=== PATIENT | male | born 1990 | race Caucasian/White ===

== ENCOUNTER → 2017-04-25 | Outpatient (CLI) | payer BC ==
--- NOTE | 2017-04-25 13:35 | REP ---
Left hand four views : There is no fracture or dislocation. Mineralization and joint spaces are normal. There are no calcifications or foreign bodies. Impression: Negative left hand . Signed by Abhay Leon MD 04/25/2017 01:27 P
--- NOTE | 2017-04-25 13:36 | REP ---
Left wrist four views : There is no fracture or dislocation. Mineralization and joint spaces are normal. There are no calcifications or foreign bodies. Impression: Negative left wrist . Signed by Abhay Leon MD 04/25/2017 01:27 P
== END ==
LOC: M WUC 12:39
PROVIDERS: ATTEND Physician Assistant
DX: S60.222A Contusion of left hand, initial encounter (principal); S60.212A Contusion of left wrist, initial encounter; X58.XXXA Exposure to other specified factors, initial encounter; Y92.89 Other specified places as the place of occurrence of the external cause; Y99.9 Unspecified external cause status

== ENCOUNTER 2017-12-25 13:15 | Emergency (ER) | payer OTHER, BC ==
[2017-12-25 14:07] LABS: BASO # 0.1 10^3/uL (0.0-0.2); BASO % 0.7 % (0.0-1.0); EOS # 0.2 10^3/uL (0.0-0.50); EOS % 2.2 % (0.0-3.0); HEMATOCRIT 45.9 % (42.0-52.0); IMMATURE GRANULOCYTE % 0.3 % (0-3.0); LYMPH # 1.9 10^3/uL (1.5-6.5); LYMPH % 21.2 % (24.0-44.0); MEAN CORPUSCULAR HEMOGLOBIN 29.2 pg (27.0-33.0); MEAN CORPUSCULAR HGB CONC 32.7 g/dl (32.0-36.5); MEAN CORPUSCULAR VOLUME 89.3 fl (80.0-96.0); MONO # 0.7 10^3/uL (0.0-0.8); MONO % 8.2 % (0.0-5.0); NEUTROPHILS # 5.9 10^3/uL (1.8-7.7); NEUTROPHILS % 67.4 % (36.0-66.0); PLATELET COUNT, AUTOMATED 178 10^3/uL (150-450); RED BLOOD COUNT 5.14 10^6/uL (4.30-6.10); WHITE BLOOD COUNT 8.8 10^3/uL (4.0-10.0)
[2017-12-25 14:43] LABS: ALBUMIN 4.2 GM/DL (3.2-5.2); ALBUMIN/GLOBULIN RATIO 1.35 (1.00-1.93); ALKALINE PHOSPHATASE 72 U/L (45-117); ALT/SGPT 33 U/L (12-78); ANION GAP 8 MEQ/L (8-16); AST/SGOT 23 U/L (7-37); BILIRUBIN,DIRECT 0.3 MG/DL (0.0-0.2); BILIRUBIN,TOTAL 1.1 MG/DL (0.2-1.0); BLOOD UREA NITROGEN 11 MG/DL (7-18); CARBON DIOXIDE LEVEL 28 MEQ/L (21-32); CHLORIDE LEVEL 106 MEQ/L (98-107); CREATININE FOR GFR 0.97 MG/DL (0.70-1.30); GLOMERULAR FILTRATION RATE > 60.0 (>60); GLUCOSE, FASTING 65 MG/DL (70-100); NT-PRO BNP 1984 PG/ML (<125); POTASSIUM SERUM 4.4 MEQ/L (3.5-5.1); SODIUM LEVEL 142 MEQ/L (136-145); TOTAL PROTEIN 7.3 GM/DL (6.4-8.2)
[2017-12-25 15:30] LABS: BEDSIDE GLUCOSE 73 MG/DL (70-105)
[2017-12-25 15:33] LABS: APPEARANCE, URINE CLEAR (CLEAR); BACTERIA, URINE AUTO NEGATIVE (NEGATIVE); BILIRUBIN, URINE AUTO NEGATIVE (NEGATIVE); BLOOD, URINE BLOOD NEGATIVE (NEGATIVE); COLOR, URINE YELLOW (YELLOW); GLUCOSE, URINE (UA) AUTO NEGATIVE (NEGATIVE); KETONE, URINE AUTO NEGATIVE (NEGATIVE); LEUKOCYTE ESTERASE, URINE AUTO NEGATIVE (NEGATIVE); NITRITE, URINE AUTO NEGATIVE (NEGATIVE); PROTEIN, URINE AUTO NEGATIVE (NEGATIVE); RBC, URINE AUTO 0 /HPF (0-3); SPECIFIC GRAVITY URINE AUTO 1.006 (1.002-1.035); SQUAMOUS EPITHELIAL CELL UR AU 0 /HPF (0-6); UROBILINOGEN, URINE AUTO 0.2 mg/dL (0.0-2.0); WBC, URINE AUTO 0 /HPF (0-3)
[2017-12-25 15:52] LABS: ESTIMATED AVERAGE GLUCOSE 146 MG/DL (60-110); HEMOGLOBIN A1c 6.7 %
== END 2017-12-25 16:50 | disposition home or self-care (01) ==
LOC: M ED 13:15
DX: I83.11 Varicose veins of right lower extremity with inflammation (principal); I83.12 Varicose veins of left lower extremity with inflammation; L03.115 Cellulitis of right lower limb; I51.7 Cardiomegaly; R73.03 Prediabetes; J45.909 Unspecified asthma, uncomplicated; Z83.3 Family history of diabetes mellitus; Z82.49 Family history of ischemic heart disease and other diseases of the circulatory system
CPT/HCPCS: 71045

== ENCOUNTER → 2018-01-17 | Outpatient (REF) | payer OTHER ==
[2018-01-17 17:06] LABS: ALBUMIN 4.4 GM/DL (3.2-5.2); ANION GAP 10 MEQ/L (8-16); BLOOD UREA NITROGEN 17 MG/DL (7-18); CALCIUM LEVEL 9.1 MG/DL (8.5-10.1); CARBON DIOXIDE LEVEL 23 MEQ/L (21-32); CHLORIDE LEVEL 107 MEQ/L (98-107); CREATININE FOR GFR 0.91 MG/DL (0.70-1.30); GLOMERULAR FILTRATION RATE > 60.0 (>60); GLUCOSE, FASTING 103 MG/DL (70-100); NT-PRO BNP 1539 PG/ML (<125); PHOSPHORUS LEVEL 4.1 MG/DL (2.5-4.9); POTASSIUM SERUM 4.3 MEQ/L (3.5-5.1); SODIUM LEVEL 140 MEQ/L (136-145); URIC ACID 9.2 MG/DL (3.5-7.2)
== END ==
LOC: M LABDRWCV 16:14
DX: I50.810 Right heart failure, unspecified (principal); M10.00 Idiopathic gout, unspecified site

== ENCOUNTER → 2018-01-18 | Outpatient (CLI) | payer OTHER | LOC: M RAD 12:48 | DX: I87.311 Chronic venous hypertension (idiopathic) with ulcer of right lower extremity (principal) | CPT/HCPCS: 93971 ==

== ENCOUNTER → 2018-04-03 | Outpatient (REF) | payer OTHER ==
[2018-04-03 17:20] LABS: ESTIMATED AVERAGE GLUCOSE 137 MG/DL (60-110); HEMOGLOBIN A1c 6.4 %
[2018-04-03 17:21] LABS: THYROID PEROXIDASE ANTIBODY 29.3 U/ML (<60.0)
[2018-04-03 17:27] LABS: MALB URINE SIEMENS 76.2 MG/L; MAU/CREAT RATIO 45.6 MCG/MG (0.0-30.0)
[2018-04-03 17:28] LABS: ALBUMIN 4.2 GM/DL (3.2-5.2); ALKALINE PHOSPHATASE 85 U/L (45-117); ALT/SGPT 38 U/L (12-78); ANION GAP 8 MEQ/L (8-16); AST/SGOT 19 U/L (7-37); BILIRUBIN,TOTAL 0.8 MG/DL (0.2-1.0); BLOOD UREA NITROGEN 17 MG/DL (7-18); CARBON DIOXIDE LEVEL 28 MEQ/L (21-32); CHLORIDE LEVEL 107 MEQ/L (98-107); CREATININE FOR GFR 0.96 MG/DL (0.70-1.30); FREE T4 1.08 NG/DL (0.76-1.46); GLOMERULAR FILTRATION RATE > 60.0 (>60); GLUCOSE, FASTING 100 MG/DL (70-100); POTASSIUM SERUM 4.5 MEQ/L (3.5-5.1); SODIUM LEVEL 143 MEQ/L (136-145); TOTAL PROTEIN 7.2 GM/DL (6.4-8.2); URIC ACID 7.6 MG/DL (3.5-7.2)
== END ==
LOC: M SFHCCAPE 08:07
DX: E03.9 Hypothyroidism, unspecified (principal); M10.9 Gout, unspecified

== ENCOUNTER → 2018-05-13 | Outpatient (CLI) | payer OTHER | LOC: M SLEEP 19:47 | DX: G47.33 Obstructive sleep apnea (adult) (pediatric) (principal) | CPT/HCPCS: 95811 ==

== ENCOUNTER 2019-03-20 12:01 | Emergency (ER) | payer OTHER ==
[~2019-03-20] VITALS: Ht 185.4 cm; Wt 134.0 kg
[~2019-03-20 12:01] MED LIST: HYDR25TAB PO; KEFL500C17 PO
[2019-03-20] MEDS ORDERED: AMIL5TAB4 (12:10)
[2019-03-20] MEDS ORDERED: ALLO100T (12:10)
[2019-03-20] MEDS ORDERED: TORS10TA3 (12:10)
[2019-03-20 12:39] LABS: BASO % 0.6 % (0.0-1.0); EOS # 0.1 10^3/uL (0.0-0.50); EOS % 1.9 % (0.0-3.0); HEMATOCRIT 46.3 % (42.0-52.0); LYMPH # 1.4 10^3/uL (1.5-4.5); LYMPH % 19.4 % (24.0-44.0); MEAN CORPUSCULAR HEMOGLOBIN 29.8 pg (27.0-33.0); MEAN CORPUSCULAR HGB CONC 32.4 g/dl (32.0-36.5); MONO # 0.5 10^3/uL (0.0-0.8); MONO % 7.4 % (0.0-5.0); NEUTROPHILS # 5.1 10^3/uL (1.8-7.7); NEUTROPHILS % 70.3 % (36.0-66.0); PLATELET COUNT, AUTOMATED 140 10^3/uL (150-450); RED BLOOD COUNT 5.03 10^6/uL (4.30-6.10); WHITE BLOOD COUNT 7.3 10^3/uL (4.0-10.0)
[2019-03-20 12:50] LABS: INR 1.17; PROTHROMBIN TIME 15.1 SECONDS (12.1-14.4)
[2019-03-20 12:51] LABS: PARTIAL THROMBOPLASTIN TIME 31.9 SECONDS (25.4-37.6)
[2019-03-20] MEDS ORDERED: LIDOCAINE 2% W/EPIN INJ 20ML **PRES FREE As Ordered ONE (13:26)
[2019-03-20] MEDS ORDERED: LIDOCAINE 2% W/EPIN INJ 20ML **PRES FREE INJ ONE (13:30)
[2019-03-20 13:58] VITALS: BP 119/62
== END 2019-03-20 13:54 | disposition home or self-care (01) ==
LOC: M ED 12:01
DX: I83.91 Asymptomatic varicose veins of right lower extremity (principal); J45.909 Unspecified asthma, uncomplicated; F17.210 Nicotine dependence, cigarettes, uncomplicated

== ENCOUNTER → 2019-04-08 | Outpatient (CLI) | payer OTHER ==
[~2019-04-08] MED LIST changes: +ALLO100T; +ALLO100T PO; +AMIL5TAB4; +AUGM875T28 PO; +COLC1TAB13 PO; +FURO40TA2 PO; +IBUP-1114 PO; +LEVO25TA5 PO; +ONDA4TAB6 PO; +POTA1TAB14 PO; +TORS10TA3
--- NOTE | 2019-04-08 15:02 | REP ---
Clinical: History of peripheral vascular disease with lower extremity pain . Technique: Salvador scale and color Doppler evaluation using linear high frequency transducer with reflux evaluation. Findings: Ultrasound examination of the right and left lower extremity deep venous structures from the common femoral vein to the popliteal vein demonstrates normal compressibility flow and wave patterns in response to respiration and augmentation. There is no evidence for deep venous thrombosis. Right lower extremity demonstrates reflux in the anterior accessory greater saphenous vein measuring 3 mm diameter with duration of 3 seconds on standing. Left lower extremity demonstrates reflux at the greater saphenous vein measuring 4 mm diameter with reflux duration 5.3 seconds. Two right groin nodes measure 3.3 x 1.2 x 2.7 cm and 3.9 x 1.0 x 3.4 cm. Impression: No evidence for deep venous thrombosis. Very minimal reflux noted in the right anterior accessory saphenous vein and left distal greater saphenous vein. Electronically Signed by Tom Thurman MD 04/08/2019 02:53 P
== END ==
LOC: M RAD 13:05
PROVIDERS: ATTEND Physician Assistant
DX: I87.2 Venous insufficiency (chronic) (peripheral) (principal)

== ENCOUNTER 2019-04-29 15:04 | Emergency (ER) | payer OTHER ==
[~2019-04-29] VITALS: Ht 185.4 cm; Wt 133.2 kg
[~2019-04-29 15:04] MED LIST changes: -ALLO100T PO; -AUGM875T28 PO; -COLC1TAB13 PO; -FURO40TA2 PO; -IBUP-1114 PO; -LEVO25TA5 PO; -ONDA4TAB6 PO; -POTA1TAB14 PO
[2019-04-29 17:17] LABS: BASO # 0.1 10^3/uL (0.0-0.2); BASO % 0.6 % (0.0-1.0); EOS # 0.2 10^3/uL (0.0-0.50); EOS % 1.9 % (0.0-3.0); HEMATOCRIT 44.2 % (42.0-52.0); HEMOGLOBIN 14.5 g/dl (13.5-17.5); LYMPH # 1.8 10^3/uL (1.5-4.5); LYMPH % 20.4 % (24.0-44.0); MEAN CORPUSCULAR HEMOGLOBIN 29.5 pg (27.0-33.0); MEAN CORPUSCULAR HGB CONC 32.8 g/dl (32.0-36.5); MEAN CORPUSCULAR VOLUME 89.8 fl (80.0-96.0); MONO # 0.6 10^3/uL (0.0-0.8); NEUTROPHILS % 69.8 % (36.0-66.0); PLATELET COUNT, AUTOMATED 166 10^3/uL (150-450); RED BLOOD COUNT 4.92 10^6/uL (4.30-6.10); WHITE BLOOD COUNT 8.6 10^3/uL (4.0-10.0)
--- NOTE | 2019-04-29 17:23 | REPVR ---
EXAM: US Abdomen Limited, Right Upper Quadrant EXAM DATE/TIME: 04/29/2019 5:13 PM CLINICAL HISTORY: 29 years old, male; Abdominal pain and other: Subscapular; Additional info: Right scapular pain, nausea, vomiting ? gb path TECHNIQUE: Imaging protocol: Real-time ultrasound of the abdomen with image documentation. Examination was focused on the right upper quadrant. COMPARISON: No relevant prior studies available. FINDINGS: Liver: Normal. No masses. Gallbladder: Mild gallbladder wall thickening. Minimal pericholecystic fluid. No calculi demonstrated. Common bile duct: The common bile duct measures 4.5 mm. No mass or choledocholithiasis. Pancreas: Obscured by bowel gas. Right kidney: Right kidney measures 14.1 x 6.7 x 4.1 cm. Other findings: Examination limited by patient body habitus and poor acoustic characteristics. IMPRESSION: 1. Mild gallbladder wall thickening. Minimal pericholecystic fluid. No calculi demonstrated. Clinical correlation to exclude acalculus cholecystitis suggested. 2. Limited evaluation. No other significant findings demonstrated. Electronically signed by: Brayden Tinoco On 04/29/2019 17:22:36 PM
[2019-04-29 17:28] LABS: ALBUMIN 4.1 GM/DL (3.2-5.2); ALT/SGPT 26 U/L (12-78); AMYLASE 39 U/L (25-115); BILIRUBIN,TOTAL 2.4 MG/DL (0.2-1.0); BLOOD UREA NITROGEN 12 MG/DL (7-18); CALCIUM LEVEL 9.3 MG/DL (8.5-10.1); CARBON DIOXIDE LEVEL 27 MEQ/L (21-32); CHLORIDE LEVEL 106 MEQ/L (98-107); CREATININE FOR GFR 0.98 MG/DL (0.70-1.30); GLOMERULAR FILTRATION RATE > 60.0 (>60); GLUCOSE, FASTING 95 MG/DL (70-100); LIPASE 117 U/L (73-393); POTASSIUM SERUM 3.9 MEQ/L (3.5-5.1); SODIUM LEVEL 139 MEQ/L (136-145); TOTAL PROTEIN 7.3 GM/DL (6.4-8.2)
[2019-04-29] MEDS ORDERED: AUGM875T28 PO (18:09)
[2019-04-29] MEDS ORDERED: ONDA4TAB6 PO (18:09)
[2019-04-29 18:22] VITALS: BP 113/73
--- NOTE | 2019-04-30 00:29 | ECGEPIP ---
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 Order Number: [id number] Reading MD: Joaquim Lopez Measurements Intervals [place] Rate: 82 P: 66 NC: 201 QRS: 42 QRSD: 98 T: 89 QT: 400 QTc: 470 Interpretive Statements SINUS RHYTHM WITH MARKED SINUS ARRHYTHMIA Low QRS complex voltage in the limb leads Nonspecific ST-T wave abnormalities Prolonged QTc interval More baseline variabilit when compareed to tracing done 12-25-17 Electronically Signed on 04-30-2019 0:29:12 EDT by Joaquim Lopez
[2019-05-20] MEDS ORDERED: COLC1TAB13 PO (10:49)
[2019-05-20] MEDS ORDERED: POTA1TAB14 PO (10:49)
[2019-05-20] MEDS ORDERED: LEVO25TA5 PO (10:49)
[2019-05-20] MEDS ORDERED: FURO40TA2 PO (10:49)
[2019-05-20] MEDS ORDERED: ALLO100T PO (10:49)
[2019-05-20] MEDS ORDERED: IBUP-1114 PO (10:50)
== END 2019-04-29 18:24 | disposition home or self-care (01) ==
LOC: M ED 15:04
DX: K80.10 Calculus of gallbladder with chronic cholecystitis without obstruction (principal); E80.6 Other disorders of bilirubin metabolism; R60.0 Localized edema; M62.838 Other muscle spasm; F17.200 Nicotine dependence, unspecified, uncomplicated; Z87.19 Personal history of other diseases of the digestive system

== ENCOUNTER 2019-05-13 18:12 | Emergency (ER) | payer OTHER ==
[~2019-05-13] VITALS: Ht 185.4 cm; Wt 139.1 kg
[~2019-05-13 18:12] MED LIST changes: -ALLO100T PO; -COLC1TAB13 PO; -FURO40TA2 PO; -IBUP-1114 PO; -LEVO25TA5 PO; -POTA1TAB14 PO
[2019-05-13] MEDS ORDERED: ISOVUE-370 76% 100ML VIAL (Q9967) As Ordered ONE (19:22)
[2019-05-13 19:26] LABS: INR 1.3; PROTHROMBIN TIME 15.9 SECONDS (11.8-14.0)
[2019-05-13 19:27] LABS: PARTIAL THROMBOPLASTIN TIME 32.9 SECONDS (25.0-38.4)
[2019-05-13 19:32] LABS: CK-MB VALUE MASS 1.9 NG/ML (<3.6); CPK CREATINE PHOSPHOKINASE 195 U/L (39-308); MB/CK RELATIVE INDEX 0.97 (< OR =4); TROPONIN I < 0.02 NG/ML (< 0.10)
[2019-05-13] MEDS ORDERED: KETOROLAC 30 MG/ML VIAL (J1885) IV ONE (19:45)
--- NOTE | 2019-05-13 20:10 | ECGEPIP ---
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
--- NOTE | 2019-05-13 20:11 | REPVR ---
EXAM: CT Angiography Chest With Contrast EXAM DATE/TIME: 05/13/2019 7:35 PM CLINICAL HISTORY: 29 years old, male; Chest pain; Additional info: Cp TECHNIQUE: Imaging protocol: Axial computed tomographic angiography images of the chest with intravenous contrast using CT angiography protocol. Coronal and sagittal reformatted images were created and reviewed. 3D rendering: MIP reconstructed images were created and reviewed. Radiation optimization: All CT scans at this facility use at least one of these dose optimization techniques: automated exposure control; mA and/or kV adjustment per patient size (includes targeted exams where dose is matched to clinical indication); or iterative reconstruction. Contrast material: ISO 370;Contrast volume: 75 ml;Contrast route: IV; COMPARISON: CR Chest, 2 view PA, Lat 05/13/2019 8:32 AM FINDINGS: Pulmonary arteries: No focal pulmonary artery filling defect to suggest acute pulmonary embolus. Aorta: No thoracic aortic aneurysm or dissection. Lungs: No suspicious lung mass or air space process. No central endobronchial lesion. Pleural space: Miniscule dependent transudate density bilateral pleural effusions. No pneumothorax. Heart: Multichamber cardiac enlargement. Pericardial effusion is present circumferentially, measuring up to 3.5 cm in thickness. Dilatation of the right atrium, IVC and hepatic veins is present. Interstitial pattern does not suggest pulmonary edema. Intraperitoneal space: Cirrhotic changes are present in the liver with nodular contours and adjacent ascites. Lymph nodes: No enlarged mediastinal lymph nodes. Soft tissues: Changes of gynecomastia are present. Incidental left axillary lipoma IMPRESSION: 1. No evidence of acute pulmonary embolus. 2. Multichamber cardiac enlargement with large pericardial effusion and probable mild compromise of cardiac compliance with dilated IVC and hepatic veins. No interstitial changes of tamponade 3. Cirrhosis and ascites. Electronically signed by: Quinton Bah On 05/13/2019 20:10:51 PM
[2019-05-13 20:46] VITALS: BP 101/76
--- NOTE | 2019-05-14 12:49 | ED PDOC ---
Post-Departure Follow-Up dr tijerina faxed formal report of cta chest for fu Vince Garcia MD May 14, 2019 12:49
[2019-05-14] MEDS ORDERED: COLC1TAB13 PO (19:44)
[2019-05-20] MEDS ORDERED: LEVO25TA5 PO (10:49)
[2019-05-20] MEDS ORDERED: COLC1TAB13 PO (10:49)
[2019-05-20] MEDS ORDERED: ALLO100T PO (10:49)
[2019-05-20] MEDS ORDERED: FURO40TA2 PO (10:49)
[2019-05-20] MEDS ORDERED: POTA1TAB14 PO (10:49)
[2019-05-20] MEDS ORDERED: IBUP-1114 PO (10:50)
== END 2019-05-13 21:00 | disposition home or self-care (01) ==
LOC: M ED 18:12
DX: I31.3 Pericardial effusion (noninflammatory) (principal); I48.91 Unspecified atrial fibrillation; I11.0 Hypertensive heart disease with heart failure; I50.9 Heart failure, unspecified; M10.9 Gout, unspecified; E66.9 Obesity, unspecified; Z79.899 Other long term (current) drug therapy; Z79.890 Hormone replacement therapy; F17.210 Nicotine dependence, cigarettes, uncomplicated
CPT/HCPCS: 36415; 71275; 82550; 82553; 84484; 85610; 85730; 93005; 96374; 99284; J1885; Q9967

== ENCOUNTER → 2019-05-13 | Outpatient (CLI) | payer OTHER ==
[~2019-05-13] MED LIST changes: +ALLO100T PO; +AUGM875T28 PO; +COLC1TAB13 PO; +FURO40TA2 PO; +IBUP-1114 PO; +LEVO25TA5 PO; +ONDA4TAB6 PO; +POTA1TAB14 PO
--- NOTE | 2019-05-13 08:44 | REP ---
Clinical: Acute cholecystitis. Clinical: Preoperative assessment . Comparison: 12/25/2017 . Technique: PA and lateral. Findings: The mediastinum and cardiac silhouette are stable. Cardiomegaly again noted. The lung hatch are clear and without acute consolidation, effusion, or pneumothorax. The skeletal structures are intact and normal. Impression: 1. Cardiomegaly. Electronically Signed by Tom Thurman MD 05/13/2019 08:35 A
[2019-05-13 08:50] LABS: BASO # 0.1 10^3/uL (0.0-0.2); BASO % 0.7 % (0.0-1.0); EOS # 0.1 10^3/uL (0.0-0.50); HEMATOCRIT 45.8 % (42.0-52.0); HEMOGLOBIN 14.7 g/dl (13.5-17.5); LYMPH # 1.4 10^3/uL (1.5-4.5); LYMPH % 19.8 % (24.0-44.0); MEAN CORPUSCULAR HEMOGLOBIN 29.1 pg (27.0-33.0); MEAN CORPUSCULAR HGB CONC 32.1 g/dl (32.0-36.5); MEAN CORPUSCULAR VOLUME 90.5 fl (80.0-96.0); MONO # 0.5 10^3/uL (0.0-0.8); MONO % 7.6 % (0.0-5.0); NEUTROPHILS # 4.9 10^3/uL (1.8-7.7); NEUTROPHILS % 69.6 % (36.0-66.0); PLATELET COUNT, AUTOMATED 168 10^3/uL (150-450); RED BLOOD COUNT 5.06 10^6/uL (4.30-6.10); WHITE BLOOD COUNT 7.1 10^3/uL (4.0-10.0)
[2019-05-13 09:26] LABS: ALBUMIN 3.9 GM/DL (3.2-5.2); ALT/SGPT 28 U/L (12-78); BILIRUBIN,TOTAL 2.2 MG/DL (0.2-1.0); BLOOD UREA NITROGEN 16 MG/DL (7-18); CALCIUM LEVEL 9.1 MG/DL (8.5-10.1); CARBON DIOXIDE LEVEL 29 MEQ/L (21-32); CHLORIDE LEVEL 105 MEQ/L (98-107); CREATININE FOR GFR 0.82 MG/DL (0.70-1.30); GLOMERULAR FILTRATION RATE > 60.0 (>60); GLUCOSE, FASTING 88 MG/DL (70-100); NT-PRO BNP 2269 PG/ML (<125); POTASSIUM SERUM 4.3 MEQ/L (3.5-5.1); SODIUM LEVEL 139 MEQ/L (136-145); TOTAL PROTEIN 6.9 GM/DL (6.4-8.2)
[2019-05-14 12:13] LABS: C REACTIVE PROTEIN QUANTITATIV < 0.30 MG/DL (0.00-0.30); FREE T4 1.24 NG/DL (0.76-1.46); RHEUMATOID FACTOR QUANT < 10.0 IU/ML (<15.0); URIC ACID 7.3 MG/DL (3.5-7.2)
[2019-05-17 00:06] LABS: ANA (HEP2) Negative (.); Lyme Disease IgG/IgM Antibodie <0.91 ISR (0.00-0.90); Lyme Disease IgM Ab Quantitati <0.80 index (0.00-0.79)
[2019-05-17 12:37] LABS: HEMOGLOBIN A1c 6.1 %
== END ==
LOC: M LAB 08:12
PROVIDERS: ATTEND Physician Assistant
DX: E80.6 Other disorders of bilirubin metabolism (principal); R60.0 Localized edema; R07.81 Pleurodynia; K81.0 Acute cholecystitis; I31.3 Pericardial effusion (noninflammatory)

== ENCOUNTER 2019-05-14 13:59 | Emergency (ER) | payer OTHER ==
[~2019-05-14] VITALS: Ht 185.4 cm; Wt 141.1 kg
[2019-05-14 15:23] LABS: BASO # 0.1 10^3/uL (0.0-0.2); BASO % 0.6 % (0.0-1.0); EOS # 0.1 10^3/uL (0.0-0.50); EOS % 1.8 % (0.0-3.0); HEMATOCRIT 44.9 % (42.0-52.0); HEMOGLOBIN 14.8 g/dl (13.5-17.5); LYMPH # 1.5 10^3/uL (1.5-4.5); LYMPH % 18.8 % (24.0-44.0); MEAN CORPUSCULAR VOLUME 90.9 fl (80.0-96.0); MONO # 0.5 10^3/uL (0.0-0.8); MONO % 6.4 % (0.0-5.0); NEUTROPHILS # 5.6 10^3/uL (1.8-7.7); NEUTROPHILS % 72.3 % (36.0-66.0); PLATELET COUNT, AUTOMATED 153 10^3/uL (150-450); RED BLOOD COUNT 4.94 10^6/uL (4.30-6.10); WHITE BLOOD COUNT 7.7 10^3/uL (4.0-10.0)
[2019-05-14 15:33] LABS: INR 1.3; PROTHROMBIN TIME 15.9 SECONDS (11.8-14.0)
--- NOTE | 2019-05-14 15:48 | REP ---
CHEST, SINGLE VIEW: Single view of the chest is performed. There is no acute infiltrate or pulmonary edema. Cardiac silhouette is prominent. On yesterday's CT of the chest there was a moderate amount of pericardial fluid. This study is otherwise unremarkable. Electronically Signed by Abhay Salvador MD 05/15/2019 07:51 A
[2019-05-14 15:50] LABS: ALT/SGPT 26 U/L (12-78); BLOOD UREA NITROGEN 17 MG/DL (7-18); CALCIUM LEVEL 9.1 MG/DL (8.5-10.1); CARBON DIOXIDE LEVEL 24 MEQ/L (21-32); CHLORIDE LEVEL 109 MEQ/L (98-107); CK-MB VALUE MASS 2.1 NG/ML (<3.6); CPK CREATINE PHOSPHOKINASE 136 U/L (39-308); CREATININE FOR GFR 0.87 MG/DL (0.70-1.30); GLOMERULAR FILTRATION RATE > 60.0 (>60); GLUCOSE, FASTING 106 MG/DL (70-100); MB/CK RELATIVE INDEX 1.54 (< OR =4); POTASSIUM SERUM 3.8 MEQ/L (3.5-5.1); SODIUM LEVEL 140 MEQ/L (136-145)
[2019-05-14 15:51] LABS: ALBUMIN 3.9 GM/DL (3.2-5.2); BILIRUBIN,DIRECT 0.9 MG/DL (0.0-0.2); BILIRUBIN,TOTAL 2.1 MG/DL (0.2-1.0); NT-PRO BNP 2863 PG/ML (<125); TOTAL PROTEIN 6.7 GM/DL (6.4-8.2); TROPONIN I < 0.02 NG/ML (< 0.10)
[2019-05-14] MEDS ORDERED: COLC1TAB13 PO (19:44)
[2019-05-14] MEDS ORDERED: COLCHICINE 0.6 MG TAB PO ONE (19:45)
[2019-05-14 20:07] VITALS: BP 115/75
--- NOTE | 2019-05-14 21:47 | ECGEPIP ---
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
--- NOTE | 2019-05-15 08:19 | ECHO ---
DATE OF STUDY: 05/14/2019 DATE OF : 1990 HEIGHT: 186 cm WEIGHT: 141 kg REFERRING PROVIDER: MAGGIE Guadalupe INDICATION: Dyspnea. 2-D MEASUREMENTS: Aortic annulus: 2.1 cm Aortic root: 3.1 cm Ventricular septum: 1.19 cm Posterior wall: 1.22 cm Left ventricle diastole: 3.6 cm Proximal ascending aorta: 3.2 cm Left atrium: 5.5 cm DOPPLER MEASUREMENTS: Aortic valve velocity: 81.9 cm/sec LVOT velocity: 61.8 cm/sec LVOT VTI: 12.3 cm Mitral E velocity: 101 cm/sec Mitral deceleration time: 92 ms Very mild tricuspid regurgitation Estimated right ventricular systolic pressure 33 mmHg DESCRIPTION: The rhythm was atrial fibrillation with controlled ventricular response. Image quality was fairly good. This was a 2-D, M-mode, color flow Doppler and pulse wave Doppler examination. CONCLUSIONS: 1. Large pericardial effusion which measured 2.6 cm of the posterior wall, 1.5 cm over the anterior wall over the right ventricle, 3.3 cm over the lateral wall of the left ventricle and 1.6 cm over the right atrial free wall. No diastolic chamber collapse. There appeared to be a round relatively low density mass in the vicinity of the junction of the aortic root adjacent to the uppermost portion of the conus portion of the right ventricle. There may be additional mass-like structures versus epicardial fat adjacent to that over the conus portion of the right ventricle. Differential diagnosis would include loculated pericardial effusion, epicardial fat, lymphoma, and other tumors. There appeared to be close to 25% respiratory variation of the mitral inflow pattern with breathing. 2. Normal left ventricle size and left ventricle wall thickness near the upper limits of normal. Normal left ventricle regional wall motion and wall thickening. Normal LV systolic function. LVEF 65% by visual estimate. Unable to determine LV diastolic function in the setting of atrial fibrillation. 3. Severe left atrial dilatation. 4. Mild aortic valve sclerosis with a 3-cuspid aortic valve. 5. Right pleural effusion. 6. Presence of ascites around the liver. 7. Inferior vena cava plethora suggestive of elevated central venous pressure at least 20 mmHg. The case was discussed by telephone this evening by Dr. Mercado with Dr. Roman Yen and the plan is to have the patient admitted to the hospital with Dr. Yen to be on consult to see the patient tomorrow and the plan to keep the patient nothing by mouth overnight.
[2019-05-20] MEDS ORDERED: FURO40TA2 PO (10:49)
[2019-05-20] MEDS ORDERED: COLC1TAB13 PO (10:49)
[2019-05-20] MEDS ORDERED: POTA1TAB14 PO (10:49)
[2019-05-20] MEDS ORDERED: ALLO100T PO (10:49)
[2019-05-20] MEDS ORDERED: LEVO25TA5 PO (10:49)
[2019-05-20] MEDS ORDERED: IBUP-1114 PO (10:50)
== END 2019-05-14 20:08 | disposition home or self-care (01) ==
LOC: M ED 13:59
DX: I48.91 Unspecified atrial fibrillation (principal); I31.3 Pericardial effusion (noninflammatory); R07.89 Other chest pain; M25.519 Pain in unspecified shoulder; I10 Essential (primary) hypertension; F17.200 Nicotine dependence, unspecified, uncomplicated

== ENCOUNTER 2019-05-14 23:04 | Emergency (ER) | payer OTHER ==
[~2019-05-14] VITALS: Ht 185.4 cm; Wt 141.8 kg
[~2019-05-14 23:04] MED LIST changes: +COLC1TAB13 PO
[2019-05-15] MEDS ORDERED: NS 1,000 ML IV SCH
[2019-05-15 00:13] VITALS: BP 117/74
[2019-05-20] MEDS ORDERED: COLC1TAB13 PO (10:49)
[2019-05-20] MEDS ORDERED: LEVO25TA5 PO (10:49)
[2019-05-20] MEDS ORDERED: ALLO100T PO (10:49)
[2019-05-20] MEDS ORDERED: POTA1TAB14 PO (10:49)
[2019-05-20] MEDS ORDERED: FURO40TA2 PO (10:49)
[2019-05-20] MEDS ORDERED: IBUP-1114 PO (10:50)
== END 2019-05-15 00:18 | disposition short-term general hospital (02) ==
LOC: M ED 23:04
DX: I31.3 Pericardial effusion (noninflammatory) (principal); I10 Essential (primary) hypertension

== ENCOUNTER → 2019-06-05 | Outpatient (REF) | payer OTHER ==
[~2019-06-05] MED LIST changes: +ALLO100T PO; +FURO40TA2 PO; +IBUP-1114 PO; +LEVO25TA5 PO; +POTA1TAB14 PO
[2019-06-05 17:10] LABS: BASO # 0.1 10^3/uL (0.0-0.2); BASO % 0.8 % (0.0-1.0); EOS # 0.1 10^3/uL (0.0-0.50); HEMATOCRIT 44.3 % (42.0-52.0); HEMOGLOBIN 14.5 g/dl (13.5-17.5); LYMPH # 1.3 10^3/uL (1.5-4.5); LYMPH % 20.2 % (24.0-44.0); MEAN CORPUSCULAR HEMOGLOBIN 29.7 pg (27.0-33.0); MEAN CORPUSCULAR HGB CONC 32.7 g/dl (32.0-36.5); MEAN CORPUSCULAR VOLUME 90.6 fl (80.0-96.0); MONO # 0.6 10^3/uL (0.0-0.8); MONO % 9.6 % (0.0-5.0); NEUTROPHILS # 4.5 10^3/uL (1.8-7.7); NEUTROPHILS % 67.1 % (36.0-66.0); PLATELET COUNT, AUTOMATED 155 10^3/uL (150-450); RED BLOOD COUNT 4.89 10^6/uL (4.30-6.10); WHITE BLOOD COUNT 6.6 10^3/uL (4.0-10.0)
[2019-06-05 17:27] LABS: ALT/SGPT 25 U/L (12-78); BILIRUBIN,TOTAL 2.2 MG/DL (0.2-1.0); BLOOD UREA NITROGEN 15 MG/DL (7-18); CALCIUM LEVEL 9.1 MG/DL (8.5-10.1); CARBON DIOXIDE LEVEL 30 MEQ/L (21-32); CHLORIDE LEVEL 104 MEQ/L (98-107); CHOLESTEROL LEVEL 111 MG/DL (<200); CHOLESTEROL RISK RATIO 3.964 (<5); FREE T4 1.28 NG/DL (0.76-1.46); GLOMERULAR FILTRATION RATE > 60.0 (>60); GLUCOSE, FASTING 95 MG/DL (70-100); HDL CHOLESTEROL 28 MG/DL (>40); LDL CHOLESTEROL 69 MG/DL (<100); NON-HDL-C 83 MG/DL; POTASSIUM SERUM 4.1 MEQ/L (3.5-5.1); SODIUM LEVEL 138 MEQ/L (136-145); TOTAL 25(OH) VITAMIN D 27.1 NG/ML (30.0-100.0); TRIGLYCERIDES LEVEL 68 MG/DL (<150); URIC ACID 6.7 MG/DL (3.5-7.2)
[2019-06-05 18:05] LABS: MAU/CREAT RATIO 324.3 MCG/MG (0.0-30.0)
[2019-06-05 18:23] LABS: HEMOGLOBIN A1c 6.3 %
== END ==
LOC: M SFHCCAPE 07:40
PROVIDERS: ATTEND Physician Assistant
DX: E11.69 Type 2 diabetes mellitus with other specified complication (principal); E03.9 Hypothyroidism, unspecified; E66.01 Morbid (severe) obesity due to excess calories; M10.9 Gout, unspecified

== ENCOUNTER → 2019-06-18 | Outpatient (CLI) | payer OTHER ==
--- NOTE | 2019-06-18 11:37 | REP ---
ULTRASOUND ABDOMEN WITH DUPLEX DOPPLER EVALUATION OF PORTAL VASCULATURE: Real-time sonographic evaluation of the abdomen performed. Gallbladder demonstrates wall thickening up to 5 mm. No definite gallstones are seen in the gallbladder. There is no intrahepatic or extrahepatic biliary dilatation, common bile duct measuring 4 mm. The liver demonstrates heterogeneous echotexture diffusely. There is hepatomegaly with the length of the liver in the mid clavicular line 20.4 cm. No gross liver pancreatic mass is seen. The pancreas is not optimally seen due to overlying bowel gas. Spleen is mildly enlarged with a length of 13.7 cm, width 12.7 cm and height 4.7 cm. Kidneys are normal in size and echotexture, right kidney measuring 13.6 x 6.1 x 4.6 cm and left kidney 13.0 x 5.6 x 5.9 cm. There is no renal mass or hydronephrosis. No renal stone is seen. The abdominal aorta could not be visualized due to overlying bowel gas. There is mild perihepatic ascites. There appears to be a left pleural effusion. Duplex Doppler evaluation of portal vasculature is performed. Superior mesenteric vein could not be visualized. Central splenic vein could not be visualized. Peripheral splenic vein demonstrates flow with velocity 10.3 cm/s, with normal direction. There is normal direction of flow in the portal vasculature. Velocity in the main portal vein is 23.5 cm/s. Peak systolic velocity of main hepatic artery is 117 cm/s with resistive index 0.68. Hepatic venous waveforms are partially reversed suggesting congestive heart failure or tricuspid regurgitation. There are biphasic waveforms in the portal vasculature. IMPRESSION: Gallbladder wall thickening without intraluminal gallstones. No biliary dilatation. Diffuse heterogeneous echotexture of the liver with mild hepatomegaly. There is also mild splenomegaly. There is mild ascites. Left pleural effusion. Normal direction of flow in the portal vasculature. Abnormal hepatic venous and portal venous waveforms as discussed above. Electronically Signed by Abhay Salvador MD 06/19/2019 09:22 A
== END ==
LOC: M RAD 09:19
PROVIDERS: ATTEND Internal Medicine Gastroenterology
DX: K76.6 Portal hypertension (principal); R18.8 Other ascites

== ENCOUNTER → 2019-07-04 | Outpatient (CLI) | payer OTHER ==
[2019-07-04 14:53] LABS: BLOOD UREA NITROGEN 17 MG/DL (7-18); CALCIUM LEVEL 9.5 MG/DL (8.5-10.1); CARBON DIOXIDE LEVEL 30 MEQ/L (21-32); CHLORIDE LEVEL 96 MEQ/L (98-107); CREATININE FOR GFR 1.01 MG/DL (0.70-1.30); GLOMERULAR FILTRATION RATE > 60.0 (>60); GLUCOSE, FASTING 129 MG/DL (70-100); POTASSIUM SERUM 3.4 MEQ/L (3.5-5.1); SODIUM LEVEL 136 MEQ/L (136-145)
== END ==
LOC: M LAB 13:03
PROVIDERS: ATTEND Internal Medicine Interventional Cardiology
DX: I50.32 Chronic diastolic (congestive) heart failure (principal)

== ENCOUNTER → 2019-08-14 | Outpatient (CLI) | payer OTHER ==
--- NOTE | 2019-08-14 14:48 | REP ---
Five views lumbar spine and three views thoracic spine: 08/14/2019. Indication: Thoracolumbar pain. Comparison: 05/13/2019. Findings: Idiopathic thoracolumbar scoliosis is present with lumbar leftward convexity centered at L2. There is no new acute fracture, subluxation or dislocation. Advanced thoracolumbar degenerative sequelae for the patient's age are noted particularly within the lower thoracic spine. No erosive osseous lesions are detected. Joint space narrowing is noted at L5/S1 and throughout the thoracic spine. Impression: No acute thoracolumbar spine injuries detected. Degenerative sequelae and scoliosis. Electronically Signed by Samuel Vazquez DO 08/14/2019 02:39 P
--- NOTE | 2019-08-14 17:09 | REP ---
Two-view chest: 08/14/2019. Indication: Dyspnea. Comparison: 05/14/2019. Findings: Left-sided pleural effusion and cardiomegaly are present. The right lung is clear. There is no pneumothorax. Impression: Cardiomegaly. Left-sided pleural effusion. Electronically Signed by Samuel Vazquez DO 08/14/2019 05:01 P
== END ==
LOC: M RAD 12:24
PROVIDERS: ATTEND Physician Assistant
DX: J22 Unspecified acute lower respiratory infection (principal); M54.5 Low back pain; R91.8 Other nonspecific abnormal finding of lung field

== ENCOUNTER 2019-09-02 09:45 | Outpatient (RCR) | payer OTHER | END 2019-09-06 | LOC: M OT 09:45 | PROVIDERS: ATTEND Physician Assistant | DX: Z51.89 Encounter for other specified aftercare (principal); I63.412 Cerebral infarction due to embolism of left middle cerebral artery ==

== ENCOUNTER → 2019-09-19 | Outpatient (CLI) | payer OTHER ==
--- NOTE | 2019-09-19 11:37 | REP ---
ULTRASOUND ABDOMEN WITH DUPLEX DOPPLER EVALUATION OF THE PORTAL VASCULATURE: Real-time sonographic evaluation of the abdomen performed. Gallbladder demonstrates mild wall thickening up to 4 mm. No gallstones are seen. There is no intrahepatic or extrahepatic biliary dilatation, common bile duct measuring 6 mm. Liver demonstrates diffuse heterogeneous increased echo texture with micro-lobular margins and mild enlargement. Findings are compatible with diffuse fibrofatty infiltration. Liver is mildly enlarged 18.2 cm in length. The pancreas is not optimally seen due to overlying bowel gas but no gross mass is seen. Spleen is mildly enlarged measuring 12.9 x 14.0 x 4.9 cm, with splenic index 885. Kidneys are normal in size and echotexture, right kidney measuring 13.3 x 7.2 x 4.2 cm and left kidney 12.6 x 6.7 x 5.5 cm. There is no renal mass, hydronephrosis or nephrolithiasis. Proximal abdominal aorta could not be visualized due to overlying bowel gas. Distal abdominal aorta is normal in caliber measuring 1.5 cm in AP dimension. There is mild to moderate abdominal ascites. Note is made of a pericardial effusion. Duplex Doppler evaluation of the portal vasculature is limited by overlying bowel gas obscuring the superior mesenteric vein and central splenic vein. There is normal direction of flow in the peripheral splenic vein with velocity of 10 cm/s. There is normal direction of flow of the portal vasculature. Peak velocity in the main portal vein is 28.4 cm/s. Hepatic veins are patent with no thrombus. No thrombus is seen in the portal venous system. Hepatic venous waveforms are partially reversed as seen on prior study of 06/18/2019 suggesting congestive heart failure or tricuspid regurgitation. Portal splenic waveforms are biphasic. IMPRESSION: Gallbladder wall thickening. No gallstones or biliary dilatation. Mild to moderate abdominal ascites. Diffuse heterogenous echo texture of the liver, which is mildly enlarged 18.2 cm in length, with no gross mass. Splenomegaly. Pericardial effusion. No evidence of portal vein or hepatic vein thrombosis with normal direction of flow in the portal venous system. Abnormal waveforms in the hepatic veins and portal veins as discussed in detail above, unchanged since 06/18/2019. Electronically Signed by Abhay Salvador MD 09/22/2019 04:11 P
== END ==
LOC: M RAD 07:48
DX: K76.6 Portal hypertension (principal)

== ENCOUNTER 2019-12-23 19:57 | Emergency (ER) | payer OTHER ==
[~2019-12-23] VITALS: Ht 185.4 cm; Wt 123.2 kg
[~2019-12-23 19:57] MED LIST changes: -AMIO200T PO; -ASPI-523 PO; -ATOR80TA59 PO; -CELE1CAP9 PO; -ELIQ5TAB PO; -FERR1TAB8 PO; -FOLI1TAB11 PO; -METO1TAB87 PO; -METO5TA PO; -SPIR-10 PO; -TRAZ-257 PO; -VITA-158 PO
[2019-12-23] MEDS ORDERED: TRAZ-257 PO (20:29)
[2019-12-23] MEDS ORDERED: METO5TA PO (20:29)
[2019-12-23] MEDS ORDERED: METO1TAB87 PO (20:29)
[2019-12-23] MEDS ORDERED: CELE1CAP9 PO (20:29)
[2019-12-23] MEDS ORDERED: AMIO200T PO (20:29)
[2019-12-23] MEDS ORDERED: ASPI-523 PO (20:31)
[2019-12-23] MEDS ORDERED: VITA-158 PO (20:31)
[2019-12-23] MEDS ORDERED: FOLI1TAB11 PO (20:31)
[2019-12-23 20:36] LABS: BASO # 0.1 10^3/uL (0.0-0.2); BASO % 0.8 % (0.0-1.0); EOS # 0.3 10^3/uL (0.0-0.5); EOS % 3.2 % (0.0-3.0); HEMATOCRIT 38.8 % (42.0-52.0); HEMOGLOBIN 12.5 g/dl (13.5-17.5); LYMPH # 1.1 10^3/uL (1.5-5.0); LYMPH % 10.9 % (24.0-44.0); MEAN CORPUSCULAR HEMOGLOBIN 28.3 pg (27.0-33.0); MEAN CORPUSCULAR HGB CONC 32.2 g/dl (32.0-36.5); MEAN CORPUSCULAR VOLUME 87.8 fl (80.0-96.0); MONO # 0.8 10^3/uL (0.0-0.8); MONO % 7.8 % (0.0-5.0); NEUTROPHILS # 7.6 10^3/uL (1.5-8.5); NEUTROPHILS % 76.9 % (36.0-66.0); PLATELET COUNT, AUTOMATED 297 10^3/uL (150-450); RED BLOOD COUNT 4.42 10^6/uL (4.30-6.10); WHITE BLOOD COUNT 9.8 10^3/uL (4.0-10.0)
[2019-12-23] MEDS ORDERED: POTASSIUM CHLORIDE 10 MEQ SR TABLET PO ONE (21:00)
[2019-12-23] MEDS ORDERED: KCL 10MEQ/100ML SWI (KRUN) 10 MEQ in IV 1 EA IV ONE (21:00)
[2019-12-23] MEDS ORDERED: FUROSEMIDE 40 MG/4 ML VIAL (J1940) IV ONE (21:00)
[2019-12-23 21:18] LABS: BLOOD UREA NITROGEN 23 MG/DL (7-18); CALCIUM LEVEL 8.6 MG/DL (8.5-10.1); CARBON DIOXIDE LEVEL 40 MEQ/L (21-32); CHLORIDE LEVEL 80 MEQ/L (98-107); CK-MB VALUE MASS 3.1 NG/ML (<3.6); CPK CREATINE PHOSPHOKINASE 110 U/L (39-308); CREATININE FOR GFR 0.96 MG/DL (0.70-1.30); GLOMERULAR FILTRATION RATE > 60.0 (>60); GLUCOSE, FASTING 116 MG/DL (70-100); MAGNESIUM LEVEL 1.9 MG/DL (1.8-2.4); MB/CK RELATIVE INDEX 2.82 (< OR =4); NT-PRO BNP 5207 PG/ML (<125); POTASSIUM SERUM 2.6 MEQ/L (3.5-5.1); SODIUM LEVEL 130 MEQ/L (136-145); TROPONIN I 0.02 NG/ML (< 0.10)
--- NOTE | 2019-12-23 22:01 | REPVR ---
PROCEDURE INFORMATION: Exam: CT Chest Without Contrast Exam date and time: 12/23/2019 9:57 PM Age: 29 years old Clinical indication: Shortness of breath; Prior surgery; Additional info: Pleural effusion TECHNIQUE: Imaging protocol: Computed tomography of the chest without contrast. 3D rendering: MIP and/or 3D reconstructed images were created by the technologist. Radiation optimization: All CT scans at this facility use at least one of these dose optimization techniques: automated exposure control; mA and/or kV adjustment per patient size (includes targeted exams where dose is matched to clinical indication); or iterative reconstruction. COMPARISON: CT ANGIO CHEST 05/13/2019 7:26 PM FINDINGS: Somewhat limited without IV contrast and because of patient motion. Gynecomastia changes are present, as seen previously. Large bilateral pleural effusions have developed, right larger than left, with adjacent compressive atelectasis dependently. No pneumothorax. Interstitial pattern of the lungs does not suggest active pulmonary edema. Heart is prominent in size without evidence of pericardial effusion of significance. Pericardial effusion present previously appears to have resolved. Prominent mediastinal lymph nodes appear unchanged. No obvious lung mass. Contours of the liver appear nodular peripherally suggesting possible cirrhosis, and there is a small volume of perihepatic fluid as seen previously. Bony structures show no acute fracture or destructive process. IMPRESSION: Large bilateral pleural effusions, right larger than left with adjacent compressive atelectasis but no underlying pulmonary edema. The right pleural effusion occupies 75% of right hemithorax volume. Underlying cirrhosis and small volume ascites, with gynecomastia changes consistent with hepatic disease. Electronically signed by: Quinton Bah On 12/23/2019 22:01:20 PM
[2019-12-23] MEDS ORDERED: ELIQ5TAB PO (22:50)
[2019-12-23] MEDS ORDERED: SPIR-10 PO (22:50)
[2019-12-23] MEDS ORDERED: ATOR80TA59 PO (22:50)
[2019-12-23] MEDS ORDERED: FERR1TAB8 PO (22:51)
[2019-12-23 22:52] VITALS: BP 123/68
--- NOTE | 2019-12-24 07:22 | REP ---
Clinical: Chest pain. Comparison: 12/23/2019. Findings: Bilateral pleural effusions (right greater than left) along with mid to lower lobe infiltrates are again noted and similar to prior examination. No pneumothorax. Mediastinum and cardiac silhouette are incompletely evaluated due to overlying opacities. Evidence of prior sternotomy. Impression: Bilateral pleural effusions (right greater than left) and underlying pulmonary opacities similar to prior examination. Electronically Signed by Tom Thurman MD 12/24/2019 07:14 A
--- NOTE | 2019-12-24 12:08 | ECGEPIP ---
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
== END 2019-12-23 22:54 | disposition short-term general hospital (02) ==
LOC: M ED 19:57
DX: I50.9 Heart failure, unspecified (principal); E87.6 Hypokalemia; J91.8 Pleural effusion in other conditions classified elsewhere; I45.19 Other right bundle-branch block; I48.92 Unspecified atrial flutter; I48.91 Unspecified atrial fibrillation; Z86.73 Personal history of transient ischemic attack (TIA), and cerebral infarction without residual deficits; M10.9 Gout, unspecified; E03.9 Hypothyroidism, unspecified; G47.33 Obstructive sleep apnea (adult) (pediatric); K74.60 Unspecified cirrhosis of liver; R18.8 Other ascites; N62 Hypertrophy of breast
CPT/HCPCS: 36415; 71045; 71250; 80048; 82550; 82553; 83735; 83880; 84484; 85025; 93005; 93041; 94760; 96365; 96375; 99285; J1940

== ENCOUNTER → 2019-12-23 | Outpatient (CLI) | payer OTHER ==
[~2019-12-23] MED LIST changes: +AMIO200T PO; +ASPI-523 PO; +ATOR80TA59 PO; +CELE1CAP9 PO; +ELIQ5TAB PO; +FERR1TAB8 PO; +FOLI1TAB11 PO; +METO1TAB87 PO; +METO5TA PO; +SPIR-10 PO; +TRAZ-257 PO; +VITA-158 PO
[2019-12-23 17:16] LABS: BASO # 0.1 10^3/uL (0.0-0.2); BASO % 0.9 % (0.0-1.0); EOS # 0.4 10^3/uL (0.0-0.5); EOS % 3.4 % (0.0-3.0); HEMATOCRIT 41.6 % (42.0-52.0); HEMOGLOBIN 13.2 g/dl (13.5-17.5); LYMPH # 1.3 10^3/uL (1.5-5.0); LYMPH % 12.2 % (24.0-44.0); MEAN CORPUSCULAR HEMOGLOBIN 28.7 pg (27.0-33.0); MEAN CORPUSCULAR HGB CONC 31.7 g/dl (32.0-36.5); MEAN CORPUSCULAR VOLUME 90.4 fl (80.0-96.0); MONO # 0.9 10^3/uL (0.0-0.8); MONO % 8.5 % (0.0-5.0); NEUTROPHILS % 74.5 % (36.0-66.0); PLATELET COUNT, AUTOMATED 304 10^3/uL (150-450); WHITE BLOOD COUNT 10.7 10^3/uL (4.0-10.0)
--- NOTE | 2019-12-23 17:34 | REP ---
Chest x-ray: Two views. History: Acute on chronic right heart failure. Comparison chest x-ray is from August 14, 2019. Patient has undergone open heart surgery in November of this past year. Findings: Median sternotomy wires are noted. There is moderate cardiomegaly noted. There are bilateral pleural effusions, large on the right and small on the left. Most of the right hemithorax is opacified by the pleural effusion. There is blunting of the left lateral and posterior pleural angles. No definite infiltrate. No evidence of pulmonary edema. Impression: Interval median sternotomy. Bilateral pleural effusions, large on the right and small on the left. The right pleural effusion is a new finding. The patient is status post recent median sternotomy. Electronically Signed by Deniz Avery MD 12/24/2019 07:47 A
[2019-12-23 18:16] LABS: ALBUMIN 2.8 GM/DL (3.2-5.2); ALT/SGPT 34 U/L (12-78); BLOOD UREA NITROGEN 23 MG/DL (7-18); CALCIUM LEVEL 8.8 MG/DL (8.5-10.1); CARBON DIOXIDE LEVEL 39 MEQ/L (21-32); CHLORIDE LEVEL 79 MEQ/L (98-107); CREATININE FOR GFR 0.94 MG/DL (0.70-1.30); GLOMERULAR FILTRATION RATE > 60.0 (>60); GLUCOSE, FASTING 149 MG/DL (70-100); NT-PRO BNP 5737 PG/ML (<125); POTASSIUM SERUM 2.6 MEQ/L (3.5-5.1); SODIUM LEVEL 126 MEQ/L (136-145); TOTAL PROTEIN 6.3 GM/DL (6.4-8.2)
== END ==
LOC: M LAB 16:13
PROVIDERS: ATTEND Physician Assistant
DX: R06.02 Shortness of breath (principal)

== ENCOUNTER → 2020-01-05 | Outpatient (CLI) | payer OTHER ==
[~2020-01-05] MED LIST changes: +AMIO200T PO; +ASPI-523 PO; +ATOR80TA59 PO; +CELE1CAP9 PO; +ELIQ5TAB PO; +FERR1TAB8 PO; +FOLI1TAB11 PO; +METO1TAB87 PO; +METO5TA PO; +SPIR-10 PO; +TRAZ-257 PO; +VITA-158 PO
[2020-01-05 13:53] LABS: BLOOD UREA NITROGEN 9 MG/DL (7-18); CARBON DIOXIDE LEVEL 34 MEQ/L (21-32); CHLORIDE LEVEL 96 MEQ/L (98-107); CREATININE FOR GFR 0.75 MG/DL (0.70-1.30); GLOMERULAR FILTRATION RATE > 60.0 (>60); GLUCOSE, FASTING 85 MG/DL (70-100); POTASSIUM SERUM 3.9 MEQ/L (3.5-5.1); SODIUM LEVEL 133 MEQ/L (136-145)
== END ==
LOC: M LAB 12:50
DX: J90 Pleural effusion, not elsewhere classified (principal)

== ENCOUNTER → 2020-01-05 | Outpatient (CLI) | payer OTHER ==
--- NOTE | 2020-01-05 16:14 | REP ---
HISTORY: History of pleural effusions. COMPARISON: The latest prior for comparison is a portable examination of 12/23/2019 with the latest prior a two view examination obtained earlier that same day. Both priors have been reviewed. There are bibasilar opacities which compared to the latest prior two view examination of the chest appear to have decreased on the right with little significant change suspected on the left. The cardiomediastinal silhouette is unchanged. The osseous structures are unchanged. IMPRESSION: Bilateral pleural effusions with some improvement on the right with no real change on the left. Electronically Signed by Taye Escobar DO 01/05/2020 04:19 P
== END ==
LOC: M RAD 13:04
PROVIDERS: ATTEND Surgery
DX: J90 Pleural effusion, not elsewhere classified (principal)

== ENCOUNTER → 2020-01-13 | Outpatient (CLI) | payer OTHER ==
--- NOTE | 2020-01-13 14:10 | REP ---
CHEST, TWO VIEWS: Two views of the chest are performed. Comparison 12/23/2019 and 01/05/2020. There is cardiomegaly. There are bibasilar effusions which have not significantly changed. There are adjacent bibasilar infiltrates/atelectasis unchanged. Sternal wires are present. A couple of compression deformities at mid thoracic vertebral bodies are unchanged with diffuse degenerative change of the spine. IMPRESSION: No significant change in bibasilar infiltrates and effusions. Electronically Signed by Abhay Salvador MD 01/13/2020 03:13 P
== END ==
LOC: M RAD 13:02
PROVIDERS: ATTEND Surgery
DX: J90 Pleural effusion, not elsewhere classified (principal); R06.00 Dyspnea, unspecified

== ENCOUNTER 2020-01-19 18:23 | Emergency (ER) | payer OTHER ==
[~2020-01-19] VITALS: Ht 185.4 cm; Wt 124.5 kg
[2020-01-19 18:23] VITALS: BP 125/80
== END 2020-01-19 19:08 | disposition left against medical advice (07) ==
LOC: M ED 18:23
DX: Z53.21 Procedure and treatment not carried out due to patient leaving prior to being seen by health care provider (principal)

== ENCOUNTER → 2020-01-19 | Outpatient (CLI) | payer OTHER ==
[2020-01-19 14:57] LABS: BASO # 0.1 10^3/uL (0.0-0.2); BASO % 0.8 % (0.0-1.0); EOS # 0.1 10^3/uL (0.0-0.5); EOS % 1.7 % (0.0-3.0); HEMATOCRIT 41.5 % (42.0-52.0); HEMOGLOBIN 13.1 g/dl (13.5-17.5); LYMPH # 1.1 10^3/uL (1.5-5.0); LYMPH % 14.4 % (24.0-44.0); MEAN CORPUSCULAR HEMOGLOBIN 27.5 pg (27.0-33.0); MEAN CORPUSCULAR HGB CONC 31.6 g/dl (32.0-36.5); MONO # 0.5 10^3/uL (0.0-0.8); MONO % 6.7 % (0.0-5.0); NEUTROPHILS # 5.9 10^3/uL (1.5-8.5); NEUTROPHILS % 76.1 % (36.0-66.0); PLATELET COUNT, AUTOMATED 278 10^3/uL (150-450); RED BLOOD COUNT 4.77 10^6/uL (4.30-6.10); WHITE BLOOD COUNT 7.8 10^3/uL (4.0-10.0)
[2020-01-19 15:31] LABS: HEMOGLOBIN A1c 6.1 %
[2020-01-19 15:33] LABS: ALT/SGPT 19 U/L (12-78); BILIRUBIN,DIRECT 0.6 MG/DL (0.0-0.2); BILIRUBIN,TOTAL 1.4 MG/DL (0.2-1.0); BLOOD UREA NITROGEN 8 MG/DL (7-18); CALCIUM LEVEL 8.4 MG/DL (8.5-10.1); CARBON DIOXIDE LEVEL 32 MEQ/L (21-32); CHLORIDE LEVEL 94 MEQ/L (98-107); CREATININE FOR GFR 0.84 MG/DL (0.70-1.30); FREE T4 1.58 NG/DL (0.76-1.46); GLOMERULAR FILTRATION RATE > 60.0 (>60); GLUCOSE, FASTING 71 MG/DL (70-100); NT-PRO BNP 4190 PG/ML (<125); POTASSIUM SERUM 3.6 MEQ/L (3.5-5.1); SODIUM LEVEL 132 MEQ/L (136-145); TOTAL PROTEIN 6.5 GM/DL (6.4-8.2); URIC ACID 5.2 MG/DL (3.5-7.2)
== END ==
LOC: M LAB 14:29
PROVIDERS: ATTEND Physician Assistant
DX: K74.60 Unspecified cirrhosis of liver (principal); E11.69 Type 2 diabetes mellitus with other specified complication

== ENCOUNTER → 2020-01-19 | Outpatient (CLI) | payer OTHER ==
--- NOTE | 2020-01-20 03:03 | REP ---
Clinical: Dyspnea. Pleural effusion. Technique: PA and lateral. Comparison: 01/13/2020. Findings: Large bilateral pleural effusions (left greater than right) are again noted and appear relatively similar to prior examination. Associated lower lobe atelectasis suggested. No pneumothorax. Underlying stable cardiomegaly. Prior sternotomy. Skeletal structures intact. Impression: 1. Large bilateral pleural effusions with passive atelectasis relatively similar to prior examination. Electronically Signed by Tom Thurman MD 01/20/2020 02:54 A
== END ==
LOC: M RAD 14:32
PROVIDERS: ATTEND Surgery
DX: J90 Pleural effusion, not elsewhere classified (principal)

== ENCOUNTER → 2020-02-20 | Outpatient (CLI) | payer OTHER ==
[~2020-02-20] MED LIST changes: +HYDR200T3 PO
--- NOTE | 2020-02-20 16:51 | REP ---
CHEST, TWO VIEWS: Two views of the chest are performed and compared to prior study of 01/19/2020. There are moderate bilateral pleural effusions with mild adjacent bibasilar parenchymal opacity. These findings demonstrate mild improvement compared to the prior study. There is a right pleural drainage catheter seen in the region of the right costophrenic angle. Cardiomediastinal silhouette is unchanged. Multiple sternal wires are present. There is osteopenia with degenerative changes of the spine. Mild compression deformities of mid thoracic vertebral bodies are stable. IMPRESSION: Moderate bilateral pleural effusions and adjacent bibasilar parenchymal opacities are mildly improved compared to the prior study of 01/19/2020. There is a new right pleural drainage catheter noted. Electronically Signed by Abhay Salvador MD 02/20/2020 04:57 P
== END ==
LOC: M RAD 14:29
PROVIDERS: ATTEND Surgery
DX: J90 Pleural effusion, not elsewhere classified (principal)

== ENCOUNTER 2020-02-23 18:38 | Emergency (ER) | payer OTHER ==
[~2020-02-23] VITALS: Ht 185.4 cm; Wt 125.7 kg
[~2020-02-23 18:38] MED LIST changes: -HYDR200T3 PO
[2020-02-23 19:42] LABS: BASO # 0.1 10^3/uL (0.0-0.2); BASO % 0.9 % (0.0-1.0); EOS # 0.2 10^3/uL (0.0-0.5); HEMOGLOBIN 12.3 g/dl (13.5-17.5); LYMPH # 1.2 10^3/uL (1.5-5.0); LYMPH % 15.5 % (24.0-44.0); MEAN CORPUSCULAR HEMOGLOBIN 24.6 pg (27.0-33.0); MEAN CORPUSCULAR HGB CONC 31.5 g/dl (32.0-36.5); MEAN CORPUSCULAR VOLUME 77.8 fl (80.0-96.0); MONO # 0.7 10^3/uL (0.0-0.8); NEUTROPHILS # 5.4 10^3/uL (1.5-8.5); NEUTROPHILS % 72.3 % (36.0-66.0); PLATELET COUNT, AUTOMATED 293 10^3/uL (150-450); RED BLOOD COUNT 5.01 10^6/uL (4.30-6.10); WHITE BLOOD COUNT 7.4 10^3/uL (4.0-10.0)
[2020-02-23] MEDS ORDERED: HYDR200T3 PO (19:55)
[2020-02-23 20:01] LABS: INR 1.41
[2020-02-23 20:07] LABS: ALBUMIN 3.1 GM/DL (3.2-5.2); ALT/SGPT 20 U/L (12-78); BILIRUBIN,DIRECT 0.7 MG/DL (0.0-0.2); BILIRUBIN,TOTAL 1.4 MG/DL (0.2-1.0); BLOOD UREA NITROGEN 25 MG/DL (7-18); CALCIUM LEVEL 8.5 MG/DL (8.5-10.1); CARBON DIOXIDE LEVEL 30 MEQ/L (21-32); CHLORIDE LEVEL 97 MEQ/L (98-107); CK-MB VALUE MASS 1.5 NG/ML (<3.6); CPK CREATINE PHOSPHOKINASE 83 U/L (39-308); CREATININE FOR GFR 1.05 MG/DL (0.70-1.30); GLOMERULAR FILTRATION RATE > 60.0 (>60); GLUCOSE, FASTING 136 MG/DL (70-100); MB/CK RELATIVE INDEX 1.81 (< OR =4); NT-PRO BNP 3233 PG/ML (<125); POTASSIUM SERUM 2.5 MEQ/L (3.5-5.1); SODIUM LEVEL 135 MEQ/L (136-145); TOTAL PROTEIN 6.9 GM/DL (6.4-8.2); TROPONIN I < 0.02 NG/ML (< 0.10)
[2020-02-23] MEDS ORDERED: POTASSIUM CHLORIDE 10 MEQ SR TABLET PO ONE (20:15)
[2020-02-23] MEDS ORDERED: KCL 10MEQ/100ML SWI (KRUN) 10 MEQ in IV 1 EA IV ONE ×2 (20:15→22:15)
--- NOTE | 2020-02-23 20:38 | REPVR ---
PROCEDURE INFORMATION: Exam: US Duplex Lower Extremity Veins, Bilateral Exam date and time: 02/23/2020 8:24 PM Age: 29 years old Clinical indication: Pain; Edema, localized; Lower extremity, bilateral; Leg, upper and leg, lower; Additional info: Leg pain/swelling TECHNIQUE: Imaging protocol: Real-time duplex ultrasound of the extremities with 2-D groves scale, color Doppler flow and spectral waveform analysis with image documentation. Complete exam focused on the bilateral lower extremity veins. COMPARISON: US Duplex, Ext LOWER veins, bilat BILATERAL 04/08/2019 1:58 PM FINDINGS: Right deep veins: Unremarkable. The common femoral, femoral, proximal profunda femoral and popliteal veins are patent without thrombus. Normal Doppler waveforms. Normal compressibility and/or augmentation response. Right superficial veins: Saphenofemoral junction is patent without thrombus. Left deep veins: Unremarkable. The common femoral, femoral, proximal profunda femoral and popliteal veins are patent without thrombus. Normal Doppler waveforms. Normal compressibility and/or augmentation response. Left superficial veins: Saphenofemoral junction is patent without thrombus. Soft tissues: Unremarkable. IMPRESSION: No DVT of bilateral lower extremity veins above the knee. Electronically signed by: Lui Burnett On 02/23/2020 20:37:55 PM
[2020-02-23] MEDS ORDERED: FUROSEMIDE 40MG/4ML VIAL (J1940) IV ONE (22:15)
[2020-02-23 23:45] VITALS: BP 117/78
--- NOTE | 2020-02-24 00:40 | REP ---
Clinical: Cough and dyspnea. Comparison: 02/20/2020. Findings: Cardiac silhouette is partially obscured by lower lobe opacities suggesting moderate pleural effusions and passive atelectasis/consolidations essentially unchanged from prior examination. The visualized cardiac silhouette is somewhat bulbous in appearance and underlying pericardial effusion cannot be excluded. Evidence of prior sternotomy. No pneumothorax. Skeletal structures are intact. Chest tube at the right base. Impression: 1. Right basilar chest tube in stable position. 2. Bibasilar opacities suggesting moderate pleural effusions and underlying parenchymal disease similar to prior examination. 3. Somewhat bulbous contour to the visualized left heart border raises the possibility of underlying pericardial effusion. Electronically Signed by Tom Thurman MD 02/24/2020 12:31 A
--- NOTE | 2020-02-24 07:15 | ECGEPIP ---
[facility] - ED Test Date: 2020-02-23 Pat Name: JE GENAO Department: Room: - Gender: Male [employer]: ct : 1990 Requested By: BETZY Pettit Order Number: [id number] Reading MD: Laurie Varma Measurements Intervals [place] Rate: 84 P: UT: 0 QRS: -31 QRSD: 102 T: 180 QT: 339 QTc: 402 Interpretive Statements ATRIAL FLUTTER/TACHYCARDIA MARKED LEFT AXIS DEVIATION MODERATE ST DEPRESSION SIMILAR 12/23/19 Electronically Signed on 02-24-2020 7:15:09 EDT by Laurie Varma
== END 2020-02-23 23:59 | disposition short-term general hospital (02) ==
LOC: M ED 18:38
DX: J90 Pleural effusion, not elsewhere classified (principal); I50.810 Right heart failure, unspecified; E87.6 Hypokalemia; I48.91 Unspecified atrial fibrillation; M10.9 Gout, unspecified; G47.33 Obstructive sleep apnea (adult) (pediatric); Q22.6 Hypoplastic right heart syndrome; K74.60 Unspecified cirrhosis of liver; E03.8 Other specified hypothyroidism; Z86.73 Personal history of transient ischemic attack (TIA), and cerebral infarction without residual deficits; Z87.891 Personal history of nicotine dependence; Z79.899 Other long term (current) drug therapy; Z98.890 Other specified postprocedural states
CPT/HCPCS: 36415; 71045; 80048; 80076; 82550; 82553; 83880; 84443; 84484; 85025; 85610; 87040; 87486; 87581; 87633; 87798; 93005; 93041; 93970; 94760; 96365; 96366; 96375; 99285; J1940; U0002